=== PATIENT | female | born 1990 | race Caucasian/White ===

== ENCOUNTER 2018-05-23 22:38 | Emergency (ER) | payer OTHER ==
[~2018-05-23] VITALS: Ht 152.4 cm; Wt 55.3 kg
[2018-05-23 22:46] VITALS: Ht 152.4 cm; Wt 55.3 kg
[2018-05-23 23:44] LABS: BASOPHIL % 0.7 % (0-2); PLATELET COUNT 213 x10^3mcL (130-400); RED CELL DISTRIBUTION WIDTH 13.2 % (11.5-14.5)
[2018-05-23 23:49] LABS: CALCIUM 8.5 mg/dL (8.5-10.1); CARBON DIOXIDE 29.9 mmol/L (21-32); CHLORIDE SERUM 108 mmol/L (98-107); CREATININE SERUM 0.6 mg/dL (0.6-1.0); GFR1 > 60 mL/min; GLUCOSE SERUM 99 mg/dL (74-106); POTASSIUM SERUM 3.5 mmol/L (3.5-5.1); SODIUM SERUM 143 mmol/L (136-145)
[2018-05-24 00:21] VITALS: BP 92/61
== END 2018-05-24 00:21 | disposition home or self-care (01) ==
LOC: ED 22:38
PROVIDERS: Emergency Medicine
DX: R06.02 Shortness of breath (principal); R11.2 Nausea with vomiting, unspecified; R42 Dizziness and giddiness
CPT/HCPCS: 36415; 85378

== ENCOUNTER 2019-01-17 09:20 | Emergency (ER) | payer OTHER ==
[~2019-01-17] VITALS: Ht 152.4 cm; Wt 57.6 kg
[2019-01-17 09:25] VITALS: Ht 152.4 cm; Wt 57.6 kg
[2019-01-17 09:50] LABS: BASOPHIL % 0.5 % (0-2); PLATELET COUNT 138 x10^3mcL (130-400)
[2019-01-17 10:53] LABS: microscopic required? YES; urine erythrocyte 2+ (NEGATIVE)
[2019-01-17 11:03] VITALS: BP 108/52
== END 2019-01-17 11:54 | disposition home or self-care (01) ==
LOC: ED 09:20
PROVIDERS: Emergency Medicine
DX: O20.0 Threatened abortion (principal); R82.71 Bacteriuria
CPT/HCPCS: 36415

== ENCOUNTER 2019-03-18 07:42 | Emergency (ER) | payer OTHER ==
[~2019-03-18] VITALS: Ht 152.4 cm; Wt 57.2 kg
[2019-03-18 07:46] VITALS: Ht 152.4 cm; Wt 57.2 kg
[2019-03-18 09:15] LABS: BASOPHIL % 0.1 % (0-2); PLATELET COUNT 189 x10^3mcL (130-400); RED CELL DISTRIBUTION WIDTH 13.7 % (11.5-14.5)
[2019-03-18 09:22] LABS: CALCIUM 8.2 mg/dL (8.5-10.1); CARBON DIOXIDE 26.1 mmol/L (21-32); CHLORIDE SERUM 104 mmol/L (98-107); CREATININE SERUM 0.6 mg/dL (0.6-1.0); GFR1 > 60 mL/min; GLUCOSE SERUM 87 mg/dL (74-106); POTASSIUM SERUM 3.7 mmol/L (3.5-5.1); SODIUM SERUM 139 mmol/L (136-145)
[2019-03-18 09:26] LABS: ALKALINE PHOSPHATASE 52 U/L (46-116); ALT/SGPT 10 U/L (14-59); AST/SGOT 10 U/L (15-37); BILIRUBIN TOTAL 0.42 mg/dL (0.20-1.00); TOTAL PROTEIN, SERUM 6.8 g/dL (6.4-8.2)
[2019-03-18 09:27] LABS: ALBUMIN 2.8 g/dL (3.4-5.0)
[2019-03-18 11:01] LABS: microscopic required? NO
[2019-03-18 11:24] VITALS: BP 95/62
[2019-03-18 11:47] LABS: UA SPECIFIC GRAVITY 1.025 (1.005-1.035); urine erythrocyte NEGATIVE (NEGATIVE)
== END 2019-03-18 11:24 | disposition home or self-care (01) ==
LOC: ED 07:42
PROVIDERS: Emergency Medicine
DX: O26.891 Other specified pregnancy related conditions, first trimester (principal); J32.9 Chronic sinusitis, unspecified; Z3A.14 14 weeks gestation of pregnancy
CPT/HCPCS: J7030